=== PATIENT | female | born 1975 | race Caucasian/White ===

== ENCOUNTER → 2018-04-23 11:25 | Outpatient (CLI) | payer SELFPAY ==
[2018-04-23 13:14] LABS: Estradiol 23.5 pg/mL
[2018-04-23 13:34] LABS: Progesterone Level 0.16 ng/mL (See Comment)
[2018-04-24 10:33] LABS: Thyroid Peroxidase AB 9 IU/mL (0-34)
== END ==
PROVIDERS: Visit Provider Obstetrics & Gynecology
DX: N92.6 Irregular menstruation, unspecified (principal)
CPT/HCPCS: 36415; 82670; 84144; 84403; 86376

== ENCOUNTER → 2018-05-01 14:45 | Outpatient (CLI) | payer SELFPAY ==
[2018-05-06 15:59] LABS: HPV Reflexed? NOT INDICATED
== END ==
PROVIDERS: Referring Provider Obstetrics & Gynecology; Visit Provider Obstetrics & Gynecology
DX: Z12.4 Encounter for screening for malignant neoplasm of cervix (principal)
CPT/HCPCS: 88175; G0145

== ENCOUNTER 2018-06-30 11:56 | Day surgery (SDC) | payer SELFPAY, OTHER ==
[2018-06-26 11:25] LABS: Hematocrit 40.9 % (37-47); Hemoglobin 13.3 g/dl (12.0-15.0); Mean Corp Hgb Conc 32.5 g/gl (32-36); Mean Corpuscular Hgb 30.4 pg (27.0-32.0); Mean Corpuscular Volume 93.4 fL (81-99); Mean Platelet Vol. 9.5 fl (6.2-12.0); Platelet Count 247 K/mm3 (150-450); RBC Distribution Width CV 13.5 % (11.6-14.6); RBC Distribution Width SD 45.9 fl (35.1-43.9); Red Blood Count 4.38 M/mm3 (4.2-5.4); White Blood Count 6.5 K/mm3 (4.4-11.0)
[2018-06-26 11:28] LABS: Scan Indicated on CBC? Y/N NO
[2018-06-26 11:41] LABS: International Normalized Ratio 1.2; Partial Thromboplast Time 30.4 Seconds (24.1-36.2); Prothrombin Time (Protime)PT. 14.9 SECONDS (11.7-14.9)
--- NOTE | 2018-06-29 17:53 | PCM.HP.OB ---
- Problem List (1) Irregular menstrual bleeding Status: Acute (2) Endometrial thickening on ultrasound Status: Acute History Date of Admission: 06/30/18 History of this : This is a 42 year-old, G [], P [], at weeks gestational age. Allergies No Known Allergies Allergy (Verified 06/23/18 08:15) Home Medications: Home Medications Natural Supplement 8 oz PO DAILY 06/23/18 Smoking Status: Never smoker History Past Pregnancies: Past Pregnancies Delivery Date Name GA/Weeks Outcome Route Weight Gender Labor Length Anesthesia Delivery Location Provider FOB Review of Systems Constitutional: Denies: Chills, Fever, Weight Change HEENT: Denies: Difficulty Hearing, Difficulty Swallowing, Nasal bleeding, Nasal Congestion, Sore Throat Cardiovascular: Denies: Chest Pain, Palpitations Respiratory: Denies: Shortness of Breath, Wheezing Gastrointestinal: Denies: Constipation, Diarrhea, Nausea, Vomiting Genitourinary: Denies: Dysuria, Frequency, Hematuria, Incontinence, Urgency Musculoskeletal: Denies: Joint Pain, Muscle pain Skin: Denies: Lesions, Skin Changes Neurological: Denies: Focal weakness, Numbness Psychiatric: Denies: Anxiety, Depression Endocrine: Denies: Heat/ Cold Intolerance Hematologic/ Lymphatic: Denies: Easy Bleeding Physical Exam General: Alert, Oriented x3, No apparent distress HEENT: Atraumatic, Normocephalic. Negative for: Thyromegaly, Lymphadenopathy Cardiovascular: Regular rate, Regular Rhythm Lungs: Clear to auscultation Abdomen: Bowel Sounds Present, Gravid Neurological: Deep Tendon Reflexes 2+/4 and Symmetrical, Neuro grossly intact VACUUM CLEANER OPERATOR: Normal external genitalia. Negative for: Vulvar lesions Assessment/Plan All Active Problems Irregular menstrual bleeding (Acute) Endometrial thickening on ultrasound (Acute) This is a 42 year-old, irregular menses and notation of thickened endometrium on ultrasound. Recommend D and C, hysteroscopy. The preop preparation, the intraop procedures and the postop recovery reviewed. The risks of bleeding, infection and other organ damage including bladder, bowel and uterine perforation reviewed, accepted and consented.
--- NOTE | 2018-06-29 17:57 | HP.PCM_ITS ---
- Problem List (1) Irregular menstrual bleeding Status: Acute (2) Endometrial thickening on ultrasound Status: Acute History Date of Admission: 06/30/18 History of this : This is a 42 year-old, G [], P [], at weeks gestational age. Allergies No Known Allergies Allergy (Verified 06/23/18 08:15) Home Medications: Home Medications Natural Supplement 8 oz PO DAILY 06/23/18 Smoking Status: Never smoker History Past Pregnancies: Past Pregnancies Delivery Date Name GA/Weeks Outcome Route Weight Gender Labor Length Anesthesia Delivery Location Provider FOB Review of Systems Constitutional: Denies: Chills, Fever, Weight Change HEENT: Denies: Difficulty Hearing, Difficulty Swallowing, Nasal bleeding, Nasal Congestion, Sore Throat Cardiovascular: Denies: Chest Pain, Palpitations Respiratory: Denies: Shortness of Breath, Wheezing Gastrointestinal: Denies: Constipation, Diarrhea, Nausea, Vomiting Genitourinary: Denies: Dysuria, Frequency, Hematuria, Incontinence, Urgency Musculoskeletal: Denies: Joint Pain, Muscle pain Skin: Denies: Lesions, Skin Changes Neurological: Denies: Focal weakness, Numbness Psychiatric: Denies: Anxiety, Depression Endocrine: Denies: Heat/ Cold Intolerance Hematologic/ Lymphatic: Denies: Easy Bleeding Physical Exam General: Alert, Oriented x3, No apparent distress HEENT: Atraumatic, Normocephalic. Negative for: Thyromegaly, Lymphadenopathy Cardiovascular: Regular rate, Regular Rhythm Lungs: Clear to auscultation Abdomen: Bowel Sounds Present, Gravid Neurological: Deep Tendon Reflexes 2+/4 and Symmetrical, Neuro grossly intact ASSET PROTECTION PROFESSIONAL: Normal external genitalia. Negative for: Vulvar lesions Assessment/Plan All Active Problems Irregular menstrual bleeding (Acute) Endometrial thickening on ultrasound (Acute) This is a 42 year-old, irregular menses and notation of thickened endometrium on ultrasound. Recommend D and C, hysteroscopy. The preop preparation, the intraop procedures and the postop recovery reviewed. The risks of bleeding, infection and other organ damage including bladder, bowel and uterine perforation reviewed, accepted and consented.
[2018-06-30 12:29] LABS: Internal QC Validated? YES +Cl - CLEAR BKGD; Pregnancy, Urine Negative Negative
[2018-06-30 12:40] VITALS: BP 130/84; PULSE 64; RESP 16; TEMP 36.7; O2SAT 97; BMI 32.2
--- NOTE | 2018-06-30 13:50 | EMB_PTH ---
PATIENT: ROSARIO SAM LOC: [facility] – [place] U#:[id number] AGE/SX: 42/F ROOM: RE06/30/[address]: Dr. Soledad Bradford MD : 1975 BED: DIS: 06/30/2018 SPEC #: [id number] RECD: 07/01/18 06:58 STATUS: JOSE ENRIQUE TAVO #: [id number] BLOSSOM: 06/30/18 13:[address]: Soledad Bradford DEPT: SURGICAL PATHOLOGY RECD BY: Darshan Monte ENTERED: 07/01/18 12:18 SP TYPE: ENDOM BX/C NANCI DR: No Primary Care Phys Tissues: Endometrium, NOS Procedures: Surgery Specimen Level IV HEADER Case has been reviewed in consultation with Dr. Francois who concurs with the above diagnosis. IDC:SJOPERATION: Hysteroscopy, dilation and curettage PRE-OP DIAGNOSIS: Irregular menses and thickened endometrium TISSUE SUBMITTED: Endometrial curettings MICROSCOPIC DIAGNOSIS Endometrium, curettings: Transitional endometrium. Fragment of benign polyp with cystic change. AM:sandra 07/02/18 COMMENT Case has been reviewed in consultation with Dr. Francois who concurs with the above diagnosis. IDC:ORAL MICROSCOPIC DESCRIPTION Slides are reviewed. GROSS DESCRIPTION Received in fixative is one container labeled with the patient's name and designated endometrial curettings. The specimen consists of multiple fragments of hemorrhagic soft tissue that in aggregate measure 5 x 3 x 0.3 cm. The specimen is totally submitted in two cassettes. / ORAL:sandra 07/01/18 TC:5 CPT: 91531
--- NOTE | 2018-06-30 13:59 | PCM.OPRPT ---
Problem List (1) Irregular menstrual bleeding Status: Acute (2) Endometrial thickening on ultrasound Status: Acute Report of Operation Date of Procedure: 06/30/18 Pre-Operative Diagnosis: Irregular menses and thickened endometrium Post-Operative Diagnosis: Same Surgery/Procedure Performed:: Diagnostic hysteroscopy, D&C Description of Surgical Findings:: The uterus was noted to be in an anterior position on pelvic examination. She had uterine sounded to approximately 9-1/2-10 cm. Bilateral adnexa were noted to be benign on pelvic examination. Cervix was easily dilated to accommodate a 5 mm hysteroscope Type of Anesthesia:: Local MAC Anesthesiologist: Jose Manuel Kang Special Medications: Cefotetan 2 g IV preoperatively and 10 cc of 1% lidocaine directly to the cervix Specimen's removed: Endometrium Drains: None Estimated Blood Loss (mL): Minimal Fluids Replaced: Lactated Ringer Description of Procedure: Patient presented to the operating suite and n.p.o. status. She was placed on the operating room table and underwent a MAC anesthetic after appropriate monitors. Was a MAC anesthetic was noted to be adequate she was placed in the dorsal lithotomy position. The Jayson stirrups. She was prepped and draped in normal sterile fashion. Timeout occurred. Patient had a weighted speculum placed to the vaginal vault region and the anterior lip of the cervix was grasped elevated with a single-tooth tenaculum. Uterus was sounded to approximately 9-1/2-10 cm in an anterior position. The cervix was then injected with 1% lidocaine to the 4 quadrants of the cervix and patient tolerated well. Cervical os was easily dilated to accommodate a 5 mm hysteroscope. A millimeter hysteroscope was placed into the endometrial cavity and thickened endometrium throughout the end of nasal cavity have been noted. The hysteroscope was replaced by sharp curettage and flexion of the tissue. The tissue was then sent away for pathologic evaluation. Polyp forceps were used to remove additional tissue. Hysteroscope placed back into the initial cavity revealed removal of all tissue. Once the hysteroscope was removed along with a single-tooth tenaculum hemostasis was noted. Sponge and instrument counts were correct x2. The patient was awakened in stable condition be discharged to the home setting later today. Grafts/Implants Used: None - Complications None - Admit VTE Documentation VTE Present on Admission: No VTE Mechan Device Prophylaxis: SCD's VTE Pharm Prophylaxis ordered?: No Reason prophylaxis not ordered:: Procedure Not Indicated
--- NOTE | 2018-06-30 14:04 | DCINST_ITS ---
Discharge Diet: No Restrictions Discharge Activity: Return to Normal Activity, May Shower, May Take a Tub Bath - in 2 weeks. Return to work on:: 07/02/18 May shower in (days): 0 - TODAY May resume sexual activity in: 3 weeks Weight Bearing Status: Full weight bearing Lifting Restrictions: none Call your doctor if your incision/area has: Sudden Increased Bleeding Call your doctor if you observe: Fever of 101 or Higher, Inability to urinate, Inability to have a bowel movement, Using more than one pad per hour Cleanse incision/area with: Soap & Water Additional Instructions: motrin and ibuprofen for pain Allergies/Adverse Reactions: Allergies No Known Allergies Allergy (Verified 06/23/18 08:15) Medications to take at Discharge Natural Supplement 8 oz PO DAILY 06/23/18 Primary Care Physician: Care Physician,No Primary [Primary Care Provider] - Test Results: Test results from this visit will be discussed in further detail at your follow- up appointment, if applicable. Please Follow Up With: Soledad Bradford MD When: 1-2 weeks postop
[2018-06-30 14:07] VITALS: BP 119/76; BP 130/84; PULSE 72; RESP 16; TEMP 35.9; O2SAT 96
[2018-06-30 14:10] VITALS: BP 107/77; BP 130/84; PULSE 80; RESP 16; O2SAT 96
[2018-06-30 14:15] VITALS: BP 116/77; BP 130/84; PULSE 73; RESP 16; O2SAT 95
[2018-06-30 14:20] VITALS: BP 118/73; BP 130/84; PULSE 71; RESP 16; TEMP 36.1; O2SAT 94
[2018-06-30 14:37] VITALS: BP 130/84
== END 2018-06-30 14:47 | disposition home or self-care (01) ==
LOC: SDC 11:57 → AC 11:57
PROVIDERS: Anesthesiology; Referring Provider Obstetrics & Gynecology; Visit Provider Obstetrics & Gynecology
PROC: 0UDB8ZZ Extraction of Endometrium, Via Natural or Artificial Opening Endoscopic (ICD-10-PCS; CPT 58558; principal; 2018-06-30 13:40)
DX: N92.6 Irregular menstruation, unspecified (principal); N85.8 Other specified noninflammatory disorders of uterus
CPT/HCPCS: 00952; 58558; 36415; 81025; 85027; 85610; 85730; 86850; 86900; 88305; J7120

== ENCOUNTER → 2018-07-14 10:26 | Outpatient (CLI) | payer SELFPAY ==
[2018-06-30 12:40] VITALS: BMI 32.2
--- NOTE | 2018-07-14 10:31 | BI_ITS ---
MAMMOGRAPHY - BILATERAL SCREENING REASON FOR EXAM: Female, 42 years old. Routine annual screening examination. PERTINENT HISTORY: Grandmother with breast cancer. TECHNIQUE: Digital bilateral breast gale (3D mammographic acquisition) in the CC and MLO projections. 2-D mediolateral oblique (MLO) and craniocaudad (CC) views of both breasts were obtained. CAD: Full Field Digital Mammography with Computer Added Detection was performed. COMPARISON: None. Baseline examination. FINDINGS: Breast Composition: There are scattered areas of fibroglandular density. There are no dominant masses or suspicious calcifications. No other significant abnormalities are identified. BI/SCREENING MAMM (CAD), BILAT IMPRESSION: Negative screening mammogram. Yearly followup mammogram recommended. (A) ASSESSMENT CATEGORY: BIRADS Category 1: Negative. A letter regarding these results will be sent to the patient by the facility within 30 days. Approximately 10% of breast cancers are not detected by mammography. A normal mammogram should not delay biopsy of a clinically suspicious abnormality. [id number] Electronically Signed: Chente Smith MD at 14:49 EST , Service support ,
== END ==
PROVIDERS: Referring Provider Obstetrics & Gynecology; Visit Provider Obstetrics & Gynecology
DX: Z12.31 Encounter for screening mammogram for malignant neoplasm of breast (principal)
CPT/HCPCS: 77063; 77067

== ENCOUNTER → 2018-07-22 11:07 | Outpatient (CLI) | payer SELFPAY ==
[2018-06-30 12:40] VITALS: BMI 32.2
[2018-07-22 14:11] LABS: Estradiol 183.3 pg/mL; Progesterone Level 7.61 ng/mL (See Comment)
== END ==
PROVIDERS: Visit Provider Obstetrics & Gynecology
DX: N92.0 Excessive and frequent menstruation with regular cycle (principal)
CPT/HCPCS: 36415; 82670; 84144

== ENCOUNTER → 2019-02-08 09:33 | Outpatient (CLI) | payer OTHER, SELFPAY ==
[2019-02-08 11:16] LABS: Estradiol 37.3 pg/mL; Follicle Stimulating Hormone 7.2 mIU/mL; Free T3 2.4 pg/mL (2.18-3.98); Prolactin 7.6 ng/mL; T4 Free Direct 0.81 ng/dL (0.76-1.46); Thyroid Stim Hormone (TSH) 1.11 uIU/mL (0.358-3.74)
[2019-02-09 04:06] LABS: DHEA Sulfate 77.6 ug/dL (57.3-279.2)
[2019-02-10 09:57] LABS: Sex Hormone-binding Globulin 32.7 nmol/L (24.6-122.0)
== END ==
PROVIDERS: Visit Provider Obstetrics & Gynecology
DX: N92.1 Excessive and frequent menstruation with irregular cycle (principal)
CPT/HCPCS: 36415; 82306; 82533; 82627; 82670; 83001; 84146; 84270; 84403; 84439; 84443; 84481; 82626

== ENCOUNTER → 2019-02-19 09:58 | Outpatient (CLI) | payer OTHER, SELFPAY ==
[2019-02-19 11:16] LABS: Glucose 75GTT - Fasting 92 mg/dL (70-99)
[2019-02-19 12:28] LABS: Glucose 75GTT - 30 minutes 116 mg/dL (100-160)
[2019-02-19 12:40] LABS: Insulin 75GTT - 30 MIN 81.8 mU/L (Not Estab.)
[2019-02-19 12:41] LABS: Insulin 75GTT - 60 min 110.2 mU/L (Not Estab)
[2019-02-19 12:43] LABS: Glucose 75GTT - 60 minutes 154 mg/dL (100-160)
[2019-02-19 13:57] LABS: Glucose 75GTT - 120 minutes 114 mg/dL (70-140)
[2019-02-19 14:08] LABS: Insulin 75GTT - 120 min 132.7 mU/L (Not Estab.)
[2019-02-19 15:50] LABS: Insulin 75GTT - Fasting 9.4 mU/L (2.6-37.6)
== END ==
PROVIDERS: Referring Provider Obstetrics & Gynecology; Visit Provider Obstetrics & Gynecology
DX: N93.8 Other specified abnormal uterine and vaginal bleeding (principal)
CPT/HCPCS: 36415; 82951; 82952; 83525

== ENCOUNTER → 2019-09-23 11:31 | Outpatient (CLI) | payer OTHER, SELFPAY ==
[2019-09-20 12:50] VITALS: BMI 32.2
--- NOTE | 2019-09-23 11:33 | US_ITS ---
STUDY: ULTRASOUND OF THE FEMALE PELVIS - COMPLETE REASON FOR EXAM: Female, 44 years old. ABNORMAL BLEEDING LMP: September 11, 2019. TECHNIQUE: Transabdominal and Transvaginal TECHNICAL QUALITY: Adequate. COMPARISON: None. FINDINGS: The uterus is retroflexed and is in a midline position. The uterus measures 9.5 cm x 6.7 cm x 5.6 cm. There is a Nabothian cyst of the cervix. The endometrium measures 15 mm in thickness, and is hyperechoic. There is no demonstrated endometrial mass. There is no demonstrated myometrial mass. I.U.D. - The patient does not have an I.U.D. The right ovary is visualized. The right ovary measures 2.8 cm x 2.2 cm x 1.8 cm. There is no right ovarian cyst or ovarian mass. There is no visualized right adnexal mass or complex lesion. There is normal arterial and normal venous vascularity. The left ovary is visualized. The left ovary measures 3.8 cm x 2.9 cm x 2.3 cm. There is a 1.8 cm x 1.2 cm x 1.3 cm left ovarian follicle. There is no visualized left adnexal mass or complex lesion. There is normal arterial and normal venous vascularity. There is minimal fluid in the cul-de-sac. The pre void volume of the bladder was 840 ml. Polycystic ovary disease: No. US/Transvaginal Non- IMPRESSION: Mildly thickened endometrium. Small follicle in the left ovary. Electronically Signed: Chente Smith, at 13:24 EDT , Service support ,
--- NOTE | 2019-09-23 11:33 | US_ITS ---
STUDY: ULTRASOUND OF THE FEMALE PELVIS - COMPLETE REASON FOR EXAM: Female, 44 years old. ABNORMAL BLEEDING LMP: September 11, 2019. TECHNIQUE: Transabdominal and Transvaginal TECHNICAL QUALITY: Adequate. COMPARISON: None. FINDINGS: The uterus is retroflexed and is in a midline position. The uterus measures 9.5 cm x 6.7 cm x 5.6 cm. There is a Nabothian cyst of the cervix. The endometrium measures 15 mm in thickness, and is hyperechoic. There is no demonstrated endometrial mass. There is no demonstrated myometrial mass. I.U.D. - The patient does not have an I.U.D. The right ovary is visualized. The right ovary measures 2.8 cm x 2.2 cm x 1.8 cm. There is no right ovarian cyst or ovarian mass. There is no visualized right adnexal mass or complex lesion. There is normal arterial and normal venous vascularity. The left ovary is visualized. The left ovary measures 3.8 cm x 2.9 cm x 2.3 cm. There is a 1.8 cm x 1.2 cm x 1.3 cm left ovarian follicle. There is no visualized left adnexal mass or complex lesion. There is normal arterial and normal venous vascularity. There is minimal fluid in the cul-de-sac. The pre void volume of the bladder was 840 ml. Polycystic ovary disease: No. US/Pelvic (Non ) IMPRESSION: Mildly thickened endometrium. Small follicle in the left ovary. Electronically Signed: Chente Smith, at 13:24 EDT , Service support ,
[2019-09-23 13:46] LABS: Absolute Lymphocyte Count 1.91 X10^3/uL (0.83-4.51); Absolute Neutrophil Count 4.3 X10^3/uL (2.0-7.7); Basophil# 0.03 X10^3/uL; Basophil% 0.4 % (0-1); Eosinophil# 0.08 X10^3/uL; Eosinophils% 1.2 % (0-5); Hematocrit 28.5 % (37-47); Hemoglobin 8.6 g/dL (12.0-15.0); Lymphocyte # 1.91 X10^3/ul (4.0); Lymphocyte % 28.2 % (19-41); Mean Corp Hgb Conc 30.2 g/dL (32-36); Mean Corpuscular Hgb 26.2 pg (27.0-32.0); Mean Corpuscular Volume 86.9 fL (81-99); Monocyte# 0.38 X10^3/uL; Monocyte% 5.6 % (0-10); NRBC Flagged by Analyzer 0 % (0-5); Neutrophil # 4.32 X10^3/uL (2.7-7.7); Neutrophil % 63.7 % (47-70); Platelet Count 383 K/mm3 (150-450); RBC Distribution Width CV 14.7 % (11.6-14.6); Red Blood Count 3.28 M/mm3 (4.2-5.4); White Blood Count 6.8 K/mm3 (4.4-11.0)
== END ==
PROVIDERS: Obstetrics & Gynecology; PCP Internal Medicine; Referring Provider Nurse Practitioner Women's Health; Visit Provider Nurse Practitioner Women's Health
DX: N92.1 Excessive and frequent menstruation with irregular cycle (principal)
CPT/HCPCS: 36415; 76830; 76856; 85025

== ENCOUNTER → 2019-09-29 13:19 | Outpatient (CLI) | payer OTHER, SELFPAY ==
[2019-09-20 12:50] VITALS: BMI 32.2
[2019-09-29] MEDS: 0.9% NaCl IVPB Med Flush (250 mL) 15 ML IV (13:30)
[2019-09-29 13:39] VITALS: BP 128/77; PULSE 81; RESP 16; TEMP 36.3; O2SAT 100; BMI 31.5
[2019-09-29 15:25] VITALS: BP 126/70; PULSE 73; RESP 16; O2SAT 100
[2019-09-29 15:37] VITALS: BP 126/70; PULSE 73; RESP 16; O2SAT 100
== END ==
PROVIDERS: PCP Internal Medicine; Referring Provider Obstetrics & Gynecology; Visit Provider Obstetrics & Gynecology
DX: D64.9 Anemia, unspecified (principal)
CPT/HCPCS: 96365; 96366; J1756; J7050; A4216

== ENCOUNTER → 2019-10-06 08:17 | Outpatient (CLI) | payer OTHER, SELFPAY ==
[2019-09-20 12:50] VITALS: BMI 32.2
[2019-09-29 13:39] VITALS: BMI 31.5
[2019-10-06] MEDS: 0.9% NaCl IVPB Med Flush (250 mL) 15 ML IV (08:40)
[2019-10-06] MEDS: 0.9% NaCl Peripheral Flush Adult/Peds IV (08:40)
[2019-10-06 08:41] VITALS: BP 134/80; PULSE 82; RESP 16; TEMP 36.4; O2SAT 98; BMI 31.5
== END ==
PROVIDERS: PCP Internal Medicine; Referring Provider Obstetrics & Gynecology; Visit Provider Obstetrics & Gynecology
DX: D64.9 Anemia, unspecified (principal)
CPT/HCPCS: 96365; 96366; J1756; J7050; A4216; J2405

== ENCOUNTER 2019-10-06 10:34 | Day surgery (SDC) | payer OTHER, SELFPAY ==
[2019-08-26 15:51] VITALS: BMI 32.2
[2019-10-06] VITALS (11 sets, daily range): BP systolic 95–146; BP diastolic 54–83; PULSE 53–92; RESP 14–20; TEMP 36.4–37.3; O2SAT 96–100; BMI 31.5; BMI 31.8
--- NOTE | 2019-10-06 | HYST_PTH ---
PATIENT: ROSARIO SAM LOC: [facility] – [place] U#:[id number] AGE/SX: 44/F ROOM: RE10/06/[address]: Dr. Lauren Evans MD : 1975 BED: DIS: 10/07/2019 SPEC #: [id number] RECD: 10/06/19 14:43 STATUS: JOSE ENRIQUE TAVO #: [id number] BLOSSOM: 10/06/19 00:[address]: Lauren Evans DEPT: SURGICAL PATHOLOGY RECD BY: Wes Rivera ENTERED: 10/07/19 10:27 SP TYPE: HYSTERECT OTHR DR: Dr. Amy Alberto MD Tissues: Uterus, NOS Procedures: Surgery Specimen Level V HEADER OPERATION: ERAS, vaginal hysterectomy, bilateral salpingectomy PRE-OP DIAGNOSIS: Menorrhagia with irregular cycle N92.1 TISSUE SUBMITTED: Uterus, left fallopian tube MICROSCOPIC DIAGNOSIS Uterus, hysterectomy: Cervix - nabothian cysts and mild chronic inflammation. Endometrium - late secretory endometrium. Myometrium - focal superficial adenomyosis. Left fallopian tube - no pathologic change. AM:sandra 10/08/19 MICROSCOPIC DESCRIPTION Slides are reviewed. GROSS DESCRIPTION Received in fixative is one container labeled with the patient's name and designated uterus, left fallopian tube. The specimen consists of a hysterectomy specimen consisting of uterus with cervix and detached fallopian tube identified as left fallopian tube. The uterus with cervix weighs 170 gm and measures 10.5 x 7 x 5 cm. The serosal surface is sanchez, glistening. The ectocervical mucosa is unremarkable. The external os is oval in contour. The endocervical canal measures 3.5 cm in length and the endocervical mucosa is sanchez, glistening and unremarkable. The triangular endometrial cavity measures 5 cm in length and up to 4 cm in width. The endometrium is sanchez, glistening without any mass lesion and measures 0.1 cm in thickness. Sections of the uterine wall do not reveal any mass lesion and measures up to 3 cm in thickness. The left fallopian tube measures 4 cm in length and 0.5 cm in width. The fimbrial end is identified. Sections reveal unremarkable cut surfaces. Molding And Trim Installer sections are submitted in seven cassettes as follows: 1 - anterior cervix, 2 - posterior cervix, 3 & 4 - anterior uterine wall, 5 & 6 - posterior uterine wall, 7 - left fallopian tube. / ORAL:sandra 10/07/19 TC:5 CPT: 69792
[2019-10-06 11:03] LABS: Internal QC Validated? YES +Cl - CLEAR BKGD; Pregnancy, Urine Negative Negative
[2019-10-06 11:14] LABS: Hematocrit 32.3 % (37-47); Hemoglobin 9.8 g/dL (12.0-15.0); Mean Corp Hgb Conc 30.3 g/dL (32-36); Mean Corpuscular Hgb 26.1 pg (27.0-32.0); Mean Corpuscular Volume 86.1 fL (81-99); Platelet Count 390 K/mm3 (150-450); RBC Distribution Width CV 16.9 % (11.6-14.6); RBC Distribution Width SD 51.4 fl (35.1-43.9); Red Blood Count 3.75 M/mm3 (4.2-5.4); White Blood Count 5.8 K/mm3 (4.4-11.0)
[2019-10-06] MEDS: Acetaminophen 500 MG Tablet 1000 MG PO ×3 (11:24→23:53)
[2019-10-06] MEDS: Gabapentin 600 MG Tablet PO (11:25)
[2019-10-06] MEDS: Celecoxib 200 MG Capsule 400 MG PO (11:26)
[2019-10-06] MEDS: Phenazopyridine 95 MG Tablet 190 MG PO (11:26)
[2019-10-06 11:27] LABS: International Normalized Ratio 1.2; Magnesium 2.2 mg/dL (1.6-2.6); Partial Thromboplast Time 32.4 Seconds (24.1-36.2); Prothrombin Time (Protime)PT. 14.8 SECONDS (11.7-14.9)
[2019-10-06] MEDS: Scopolamine 1mg/72hr Patch 1 PATCH TRANSDERM. (11:28)
[2019-10-06] MEDS: Lactated Ringers 1,000 ML 40 ML IV ×2 (11:31→13:30)
[2019-10-06] MEDS: dexAMETHasone 10 MG/ML Vial 8 MG IV (11:31)
[2019-10-06] MEDS: Enoxaparin 40 MG/0.4 ML Syringe SC (11:33)
[2019-10-06 11:51] LABS: Bedside Glucose 89 mg/dL (70-110)
[2019-10-06] MEDS: Magnesium Sulfate 4gm/100mL 4 GM/100 ML IV.SOLN. IV (12:12)
--- NOTE | 2019-10-06 12:16 | PCM.HPOB.BLA ---
- Problem List (1) Abnormal laboratory test Status: Acute Comment: low DHEA (2) Anemia Status: Acute (3) Menorrhagia with irregular cycle Status: Acute Comment: plan TVH BS (4) Vitamin D deficiency Status: Acute Comment: 1,000 U daily History and Physical Date of Admission: 10/06/19 Intake Vital Signs 08/26/19 BMI 32.2 08/26/19 Height 5 ft 10 in 08/26/19 Weight: 223 lb 08/26/19 BMI 32.0 08/26/19 BP 112/88 H Intake Visit Reasons: SURGERY CONSULT Chief Complaint: surgical consult, possible hyst Online Banking Specialist Required: No Is patient in pain?: No Allergies No Known Allergies Allergy (Verified 08/26/19 15:51) Medications Natural Supplement 8 oz PO DAILY 06/23/18 [History Confirmed 08/26/19] bupropion HCl 150 mg 24 hr tablet, extended release 150 mg PO QAM 08/17/19 [History Confirmed 08/26/19] medroxyprogesterone 10 mg tablet 10 mg PO .COMPLEX #90 tab 08/26/19 [Rx Confirmed 08/26/19] Is last menstrual period known: No Post menopausal: No Patient : No : No PFSH Medical History Depression (Acute) Surgical History H/O dilation and curettage (Acute) Family History Mother Cancer carcinoma Social History (Updated 08/26/19 @ 16:[address] Lauren Evans MD) Smoking Status: Never smoker alcohol intake: never substance use type: does not use caffeine: Yes what type of physical activity do you participate in: none seatbelt use: always do you feel safe at home: Yes additional social history: [employer] [facility] SURGERY CONSULT : Details: ROSARIO SAM is a 43 year old who presents for abnormal uterine bleeding she has heavy bleeding and she struggles with this. she had a d and c inthe past by karthik, and she has used hormones in the past for it and didn't work clearly. she also had some side effects from it. she is wanting to proceed with surgical management. Female Reproductive History Cycle Length: 21-35 Bleeding Duration: 7 associated symptoms: heavy painful Questions: Metorrhagia: No, Sexually active: Yes, Dyspareunia: No, PCB: No Pregancy History 7 Elective abortions Hx Para 6 Spontaneous abortions Hx # Term Pregnancies Ectopic pregnancies Hx # Pregnancies Multiple births # of living children ROS Const Constitutional: Denies fatigue, fever(s), headache(s), increased appetite, poor appetite, weight gain or weight loss Cardio Card: Denies chest pain Resp Resp: Denies cough or dyspnea GI GI: Reports as per HPI; denies abdominal pain, constipation, nausea or vomiting : Reports as per HPI and urinary incontinence; denies difficulty urinating, painful urination, nipple discharge, urinary frequency, urinary hesitancy, urinary urgency, vaginal discharge, vaginal dryness, vaginal odor or vaginal itching Skin Skin/Breast: Denies change in hair, breast lump, breast pain, breast skin changes or nipple discharge Exam Const General: cooperative, healthy appearing, comfortable, no acute distress, well developed Nutritional Appearance: average body habitus Orientation: alert HENMT Head: normal to inspection, normocephalic Neck Neck: normal visual inspection, trachea midline Thyroid: thyroid normal Resp Effort & Inspection: normal respiratory effort Cardio Rate: regular rate Rhythm: regular rhythm Heart Sounds: S1 normal, S2 normal GI Inspection: normal to inspection, non-distended Palpation: soft, no hepatosplenomegaly Skin General: no rashes or lesions noted Assessment & Plan Problems 1. Menorrhagia with irregular cycle N92.1 plan TV BS After discussing the patient's diagnosis and treatment plan options, patient wishes to proceed with surgical management. I have discussed with the patient the risks, benefits, and alternatives of the procedure which include but are not limited to risks of anesthesia, bleeding, infection, possible damage to bowel, bladder, or surrounding vasculature which could lead to additional surgery to evaluate any complications. Patient agrees to procedure and wishes to proceed. ACOG/uptodate references given for additional information regarding procedure. Plan Problem list updated and treatment plans were reviewed with the patient and relevant educational handouts given. See problem list details for specific plan information. Medications Refilled: medroxyprogesterone (Provera) 10 mg PO tid until bleeding stops for 24 hr then bid; 90 tabs 2RF Coding Level of Care Code Off vis,est,level 4 Diagnoses Menorrhagia with irregular cycle N92.1
[2019-10-06] MEDS: Cefazolin 2 GM in 0.9% Normal Saline 100 ML IV (12:36)
--- NOTE | 2019-10-06 12:53 | PCM.OPRPT ---
Problem List (1) Abnormal laboratory test Status: Acute Comment: low DHEA (2) Anemia Status: Acute (3) Menorrhagia with irregular cycle Status: Acute Comment: plan TVH BS (4) Vitamin D deficiency Status: Acute Comment: 1,000 U daily Report of Operation Date of Procedure: 10/06/19 Pre-Operative Diagnosis: aub anemia Surgery/Procedure Performed:: tvh left salpingectomy Description of Surgical Findings:: nl bl tubes and ovaries but difficulty accessing full right tube. ditching machine engineer: Emelyn Chapa Type of Anesthesia:: General Special Medications: none Specimen's removed: uterus tubes Drains: santana Estimated Blood Loss (mL): 50 Fluids Replaced: crystalloid Description of Procedure: Patient was taken to the operating room and was placed under general anesthesia was prepped and draped in normal sterile fashion in the dorsal lithotomy position. Preoperative antibiotics and SCDs and Santana catheter was placed inside the bladder. Weighted speculum was placed in the vagina and the anterior and posterior lip of the cervix was grasped with 2 Shonna clamps and circumferentially injected with dilute vasopressin. A circumferential incision was made with a scalpel and the posterior cul-de-sac was entered into sharply and a longneck speculum was placed. The anterior cul-de-sac was also dissected down and entered into sharply and the uterosacral ligaments were clamped cut and suture ligated bilaterally followed by the cardinal ligaments which were Clamped cut and suture ligated bilaterally with 0 Monocryl. The uterus serially descended and progressive bites were taken bilaterally up to the level of the utero-ovarian ligament bilaterally which was clamped transected and double ligated with 0 Monocryl suture and 0 Vicryl free tie. Bilateral fallopian tubes and ovaries were well visualized and noted be within normal limits and the right tube was unable to be removed due to limited access but the left fallopian tube was transected across the base with a Sonia clamp and removed and sutured with 0 Vicryl suture. Excellent hemostasis was noted. Posterior peritoneum was reapproximated with 2-0 Vicryl and 2 modified Ybarra stitches were placed through the posterior vaginal cuff and bilateral uterosacral ligaments across the posterior cul-de-sac skimming along to provide apical support to the vagina. The vagina was closed with [id number] 0 Vicryl pop offs including the posterior and anterior peritoneum in the reapproximation. Excellent hemostasis was noted. All instruments removed from the vagina clear urine was noted at the end of the procedure and patient was awoken and taken recovery in stable condition. Grafts/Implants Used: none - Complications none - Admit VTE Documentation VTE Present on Admission: No VTE Mechan Device Prophylaxis: SCD's Multi Select Codes - Urinary/Genital Urinary/Genital CPT Codes: 36185 TVH+BS/O <250gr uterus
--- NOTE | 2019-10-06 12:57 | PCM.DC.VHY ---
Discharge Diet: No Restrictions Discharge Activity: Return to Normal Activity, May Not Drive, May Shower May resume sexual activity in: 6-8 weeks Call your doctor if your incision/area has: Continuous Slow Oozing, Sudden Increased Bleeding, Increased Pain/ Swelling, Increased Redness, Foul Smelling Discharge Call your doctor if you observe: Fever of 101 or Higher, Inability to urinate, Inability to have a bowel movement, Using more than one pad per hour Allergies/Adverse Reactions: Allergies No Known Allergies Allergy (Verified 10/06/19 11:12) Medications to take at Discharge bupropion HCl 150 mg 24 hr tablet, extended release 150 mg PO QAM 08/17/19 Cholecalciferol (Vitamin D3) [Vitamin D3] 10,000 units PO DAILY 09/29/19 Megestrol Acetate 40 mg PO BID 10/04/19 Naproxen [Naprosyn] 250 - 500 mg PO Q8H PRN PRN #30 tab 10/06/19 Oxycodone HCl/Acetaminophen [Percocet 5-325] 1 - 2 tablet PO Q6H PRN PRN 7 Days #15 tablet 10/06/19 The following prescriptions were given: Naproxen [Naprosyn] 250 - 500 mg PO Q8H PRN PRN #30 tab PRN Reason: MILD PAIN Transmission Status: Pending to [facility] Oxycodone HCl/Acetaminophen [Percocet 5-325] 1 - 2 tablet PO Q6H PRN PRN 7 Days #15 tablet PRN Reason: Pain Transmission Status: Sent to [facility] Primary Care Physician: Amy Alberto [Primary Care Provider] - Test Results: Test results from this visit will be discussed in further detail at your follow-up appointment, if applicable. Please Follow Up With: Lauren Evans MD - [phone]
[2019-10-06] MEDS: Vasopressin 20 UNITS/ML Vial (13:03)
[2019-10-06] MEDS: Ondansetron 4 MG/2 ML Vial IV (14:43)
[2019-10-06] MEDS: Lactated Ringers 1,000 ML 70 ML IV (15:48)
[2019-10-06] MEDS: Ketorolac 30 MG/ML Syringe IV (20:04)
[2019-10-06] MEDS: Docusate Sodium 100 MG Capsule PO (22:17)
[2019-10-07] MEDS: Ketorolac 30 MG/ML Syringe IV ×2 (02:03→07:48)
[2019-10-07 03:35] VITALS: BP 125/70; PULSE 95; RESP 16; TEMP 36.9; O2SAT 97
[2019-10-07] MEDS: Lactated Ringers 1,000 ML 70 ML IV (05:44)
[2019-10-07] MEDS: Acetaminophen 500 MG Tablet 1000 MG PO ×2 (05:50→11:45)
[2019-10-07 06:44] LABS: Hematocrit 32.2 % (37-47); Hemoglobin 9.6 g/dL (12.0-15.0); Mean Corp Hgb Conc 29.8 g/dL (32-36); Mean Corpuscular Hgb 26.1 pg (27.0-32.0); Mean Corpuscular Volume 87.5 fL (81-99); Mean Platelet Vol. 9.1 fl (6.2-12.0); Platelet Count 390 K/mm3 (150-450); RBC Distribution Width CV 17.3 % (11.6-14.6); RBC Distribution Width SD 54.2 fl (35.1-43.9); Red Blood Count 3.68 M/mm3 (4.2-5.4); White Blood Count 14.6 K/mm3 (4.4-11.0)
[2019-10-07 07:40] VITALS: BP 131/80; PULSE 74; RESP 18; TEMP 36.7; O2SAT 96
[2019-10-07] MEDS: 0.9% Saline Lock 10 ML Syringe IV (07:48)
[2019-10-07 07:55] VITALS: O2SAT 98
--- NOTE | 2019-10-07 09:38 | PN.OBGYN_ITS ---
Subjective: patient recovering well, denies CP, SOB, N, or V. patient is ambulating, voiding ,tolerating adequate po, and pain is controlled with oral medications. - Physical Exam Vitals/I&O's: Vital Signs Temp Pulse Resp BP Pulse Ox 98.1 F 74 18 131/80 H 98 10/07/19 07:40 10/07/19 07:40 10/07/19 07:40 10/07/19 07:40 10/07/19 07:55 Oxygen Flow Rate (L/min) 6 Oxygen Delivery Method Room Air Weight: 222 lb 7.143 oz Body Mass Index (BMI) 31.8 Intake and Output for Last 24 Hours 10/05/19 10/06/19 10/07/19 23:59 23:59 23:59 Intake Total 2000.33 / 2316.50 / 2316.50 Output Total 1465 / 1465 3500 / 3500 Balance 536.33 / 536.33 -1183.50 / -1183.50 Laboratory Results 10/06/19 10:50: Urine Test Negative 10/06/19 11:03: POC Glucose 89 10/06/19 11:04: WBC 5.8, RBC 3.75 L, Hgb 9.8 L, Hct 32.3 L, MCV 86.1, MCH 26.1 L , MCHC 30.3 L, RDW Std Deviation 51.4 H, RDW Coeff of Ruthie 16.9 H, Plt Count 390, MPV 9.0 10/06/19 11:04: PT 14.8, INR 1.2, APTT 32.4 10/06/19 11:04: Magnesium 2.2 10/06/19 11:04: Blood Type A POSITIVE, Antibody Screen NEGATIVE 10/07/19 06:10: WBC 14.6 H, RBC 3.68 L, Hgb 9.6 L, Hct 32.2 L, MCV 87.5, MCH 26.1 L, MCHC 29.8 L, RDW Std Deviation 54.2 H, RDW Coeff of Ruthie 17.3 H, Plt Count 390, MPV 9.1 Current Medications Acetaminophen (Tylenol) 1,000 mg PO Q6 JOAO Last Admin: 10/07/19 05:50 Dose: 1,000 mg Documented by: Docusate Sodium (Colace) 100 mg PO BID [facility] Last Admin: 10/06/19 22:17 Dose: 100 mg Documented by: Lactated Ringer's () 1,000 mls @ 70 mls/hr IV .[id number] [facility] Stop: 10/07/19 14:58 Last Infusion: 10/07/19 07:45 Dose: 70 mls/hr Documented by: Sodium Chloride () 250 mls @ 15 mls/hr IV .[id number] PRN PRN Reason: Saline Flush Sodium Chloride () 250 mls @ 15 mls/hr IV .[id number] PRN PRN Reason: Additional IVPB Infusion Ketorolac Tromethamine (Toradol (Bkc)) 30 mg IV Q6H [facility] Stop: 10/08/19 02:01 Last Admin: 10/07/19 07:48 Dose: 30 mg Documented by: Magnesium Oxide (Mag-Ox 400) 400 mg PO DAILY PRN PRN PRN Reason: Constipation Nutritional Formula (Lactose Free) (Ensure Enlive) 120 ml PO TIDCM [facility] Last Admin: 10/06/19 16:53 Dose: Not Given Documented by: Ondansetron HCl (Zofran Odt) 4 mg PO Q6H PRN PRN PRN Reason: NAUSEA Oxycodone HCl (Oxyir) 5 - 10 mg PO Q4H PRN PRN PRN Reason: Pain Score 4-10/10 Sodium Chloride () 10 - 40 ml IV UD PRN PRN Reason: SALINE FLUSH Last Admin: 10/07/19 07:48 Dose: 10 ml Documented by: Medical Necessity - Tobacco Use Smoking Status: Never smoker Tobacco Use: Non-smoker Assessment/Plan All Active Problems (Last Reviewed 08/26/19 @ 15:51 by Arabella Morales) Anemia (Acute) Vitamin D deficiency (Acute) Abnormal laboratory test (Acute) Menorrhagia with irregular cycle (Acute) patient is s/p TVH POD 1 1. routine ERAS protocol postop care- increase ambulation, encourage oral intake and oral control of pain. lovenox and scds for dvt prophylaxis, patient stable for discharge to home.
[2019-10-07] MEDS: Docusate Sodium 100 MG Capsule PO (09:44)
[2019-10-07 11:51] VITALS: BP 122/70; PULSE 83; RESP 18; TEMP 36.6; O2SAT 95
[2019-10-07 12:25] VITALS: BP 102/58; PULSE 66; RESP 18; TEMP 36.7; O2SAT 99
== END 2019-10-07 12:38 | disposition home or self-care (01) ==
LOC: SDC 10:36 → AC 10:36 → MS3 14:04
PROVIDERS: PCP Internal Medicine; Referring Provider Obstetrics & Gynecology; Visit Provider Obstetrics & Gynecology
PROC: (CPT 58260; principal; 2019-10-06 12:10)
DX: N92.1 Excessive and frequent menstruation with irregular cycle (principal); N88.8 Other specified noninflammatory disorders of cervix uteri; N80.0 Endometriosis of uterus; D64.9 Anemia, unspecified; E55.9 Vitamin D deficiency, unspecified; F32.9 Major depressive disorder, single episode, unspecified
CPT/HCPCS: 58262; 36415; 81025; 82962; 83735; 85027; 85610; 85730; 86850; 86900; 86901; 88307; 99251; J7120; A4216; G0463; J2405

== ENCOUNTER → 2019-12-16 13:43 | Outpatient (CLI) | payer OTHER, SELFPAY ==
[2019-10-18 15:21] VITALS: BMI 31.8
--- NOTE | 2019-12-16 13:43 | BI_ITS ---
MAMMOGRAPHY - BILATERAL SCREENING REASON FOR EXAM: Female, 44 years old. Routine annual screening examination. PERTINENT HISTORY: Grandmother with breast cancer. TECHNIQUE: Digital bilateral breast aryan (3D mammographic acquisition) in the CC and MLO projections. 2-D mediolateral oblique (MLO) and craniocaudad (CC) views of both breasts were obtained. CAD: Full Field Digital Mammography with Computer Added Detection was performed. COMPARISON: Comparison is made with prior examination dated July 14, 2018. FINDINGS: Breast Composition: The breasts are almost entirely fatty. There are no dominant masses or suspicious calcifications. No other significant abnormalities are identified. There has been no significant change since the prior study. BI/SCREEN MAMM (CAD) W/ARYAN BILAT IMPRESSION: Stable bilateral screening mammogram. Yearly follow-up mammogram recommended. (A) ASSESSMENT CATEGORY: BIRADS Category 1: Negative. A letter regarding these results will be sent to the patient by the facility within 30 days. Approximately 10% of breast cancers are not detected by mammography. A normal mammogram should not delay biopsy of a clinically suspicious abnormality. [id number] Electronically Signed: Chente Smith, at 8:20 EDT , Service support ,
== END ==
PROVIDERS: PCP Internal Medicine; Referring Provider Obstetrics & Gynecology; Visit Provider Obstetrics & Gynecology
DX: Z12.31 Encounter for screening mammogram for malignant neoplasm of breast (principal)
CPT/HCPCS: 77063; 77067

== ENCOUNTER → 2022-09-09 | Outpatient (CLI) | payer OTHER, SELFPAY ==
--- NOTE | 2022-09-09 11:43 | BI_ITS ---
MAMMOGRAPHY - BILATERAL SCREENING REASON FOR EXAM: Female, 47 years old. Routine annual screening examination. PERTINENT HISTORY: Grandmother with breast cancer. TECHNIQUE: Digital bilateral breast aryan (3D mammographic acquisition) in the CC and MLO projections. 2-D mediolateral oblique (MLO) and craniocaudad (CC) views of both breasts were obtained. CAD: Full Field Digital Mammography with Computer Added Detection was performed. COMPARISON: Comparison is made with prior study dated December 16, 2019 and July 14, 2018. FINDINGS: Breast Composition: There are scattered areas of fibroglandular density. There are no dominant masses or suspicious calcifications. No other significant abnormalities are identified. There has been no significant change since the prior study. BI/SCRN MAMM (CAD)W/ARYAN BILAT IMPRESSION: Stable bilateral screening mammogram. Yearly follow-up mammogram recommended. (A) ASSESSMENT CATEGORY: BIRADS Category 1: Negative. A letter regarding these results will be sent to the patient by the facility within 30 days. Approximately 10% of breast cancers are not detected by mammography. A normal mammogram should not delay biopsy of a clinically suspicious abnormality. [id number] Electronically Signed: Chente Smith MD at 14:07 EDT ,
== END | disposition home or self-care (01) ==
LOC: OPBI 11:39
PROVIDERS: PCP Internal Medicine; Referring Provider Obstetrics & Gynecology; Visit Provider Obstetrics & Gynecology
DX: Z12.31 Encounter for screening mammogram for malignant neoplasm of breast (principal)
CPT/HCPCS: 77063; 77067

== ENCOUNTER → 2024-06-23 | Outpatient (CLI) | payer OTHER, SELFPAY ==
--- NOTE | 2024-06-23 11:52 | BI_ITS ---
MAMMOGRAPHY - BILATERAL SCREENING REASON FOR EXAM: Female, 48 years old. Routine annual screening examination. PERTINENT HISTORY: Grandmother with breast cancer. TECHNIQUE: Digital bilateral breast aryan (3D mammographic acquisition) in the CC and MLO projections. 2-D mediolateral oblique (MLO) and craniocaudad (CC) views of both breasts were obtained. CAD: Full Field Digital Mammography with Computer Added Detection was performed. COMPARISON: Comparison is made with prior study September 09, 2022 and December 16, 2019. FINDINGS: Breast Composition: There are scattered areas of fibroglandular density. There are no dominant masses or suspicious calcifications. No other significant abnormalities are identified. There has been no significant change since the prior study. BI/SCRN MAMM (CAD)W/ARYAN BILAT IMPRESSION: Stable bilateral screening mammogram. Yearly follow-up mammogram recommended. (A) ASSESSMENT CATEGORY: BIRADS Category 1: Negative. A letter regarding these results will be sent to the patient by the facility within 30 days. Approximately 10% of breast cancers are not detected by mammography. A normal mammogram should not delay biopsy of a clinically suspicious abnormality. [id number] Electronically Signed: Chente Smith MD at 12:55 EST ,
== END | disposition home or self-care (01) ==
LOC: OPBI 11:51
PROVIDERS: PCP Internal Medicine; Referring Provider Obstetrics & Gynecology; Visit Provider Obstetrics & Gynecology
DX: Z12.31 Encounter for screening mammogram for malignant neoplasm of breast (principal)
CPT/HCPCS: 77063; 77067

== ENCOUNTER → 2024-10-27 | Outpatient (CLI) | payer OTHER, SELFPAY ==
[2024-10-27 12:23] LABS: Hematocrit 39.6 % (37-47); Hemoglobin 13.5 g/dL (12.0-15.0); Mean Corp Hgb Conc 34.1 g/dL (32-36); Mean Corpuscular Hgb 31.5 pg (27.0-32.0); Mean Corpuscular Volume 92.3 fL (81-99); Mean Platelet Vol. 9.7 fl (6.2-12.0); Platelet Count 274 K/mm3 (150-450); RBC Distribution Width CV 12.2 % (11.6-14.6); RBC Distribution Width SD 41.7 fl (35.1-43.9); Red Blood Count 4.29 M/mm3 (4.2-5.4); White Blood Count 5.4 K/mm3 (4.4-11.0)
[2024-10-27 12:56] LABS: Anion Gap 9 (5-15); BUN 19 mg/dL (4-19); BUN/Creat Ratio 27.1 RATIO (10-20); Carbon Dioxide 25.1 mmol/L (21.0-32.0); Chloride 102 mmol/L (98-108); Creatinine, Serum 0.69 mg/dL (0.70-1.20); EST Glomerular Filtration Rate 108 (>60); Glucose 96 mg/dL (70-99); Potassium 3.5 mmol/L (3.3-5.1); Sodium Level 136 mmol/L (133-145)
[2024-10-27 13:21] LABS: Hemoglobin A1c 5.5 % (<=5.6)
== END | disposition home or self-care (01) ==
LOC: MTLAB 09:47
PROVIDERS: Anesthesiology; PCP Internal Medicine; Referring Provider Urology; Visit Provider Urology
DX: Z01.818 Encounter for other preprocedural examination (principal); N81.4 Uterovaginal prolapse, unspecified
CPT/HCPCS: 36415; 80048; 83036; 85027

== ENCOUNTER 2024-11-04 09:56 | Observation (INO) | payer OTHER, SELFPAY ==
[2024-11-04] VITALS (15 sets, daily range): BP systolic 96–123; BP diastolic 55–82; PULSE 54–93; RESP 12–18; TEMP 2.4–36.4; O2SAT 94–98
[2024-11-04] MEDS: Lactated Ringers 1,000 ML 15 ML IV (06:44)
--- NOTE | 2024-11-04 06:49 | PCM.PRE.AN2 ---
ASA Classification* ASA Classification ASA Classification: 2 Assessment & Plan Anesthesia* Anesthesia Assessment Anesthesia Assessment: Discussed sedation and/or anesthesia options, risks, benefits, and alternatives with patient/parents/legal guardian/POA. Questions invited. The patient/parents/legal guardian/POA seems to understand and agrees to proceed with anesthesia plan. Reviewed the physical assessment, medical history, allergy history and patient home medications list prior to surgery/procedure/anesthetic and documented any changes. Performed airway and anesthesia risk assessments. Anesthesia Type Anesthesia Type: General Anesthesia Focused Assessment* Temperature: 97.2 F Pulse Rate: 61 Blood Pressure: 110/82 Respiratory Rate: 16 Pulse Ox: 97 Airway Assessment Mouth opens: >3 cm Mallampati Score: II Focused Labs Anesthesia Preop lab: CBC WBC 5.4 K/mm3 (4.4-11.0) 10/27/24 10:10/27/24 RBC 4.29 M/mm3 (4.2-5.4) 10/27/24 10:10/27/24 Hgb 13.5 g/dL (12.0-15.0) 10/27/24 10:14 10/27/24 Hct 39.6 % (37-47) 10/27/24 10:10/27/24 Plt Count 274 K/mm3 (150-450) 10/27/24 10:14 10/27/24 CHEMISTRY Potassium 3.5 mmol/L (3.3-5.1) 10/27/24 10:10/27/24 Sodium 136 mmol/L (133-145) 10/27/24 10:14 10/27/24 Magnesium 2.2 mg/dL (1.6-2.6) 10/06/19 11:04 10/06/19 BUN 19 mg/dL (4-19) 10/27/24 10:14 10/27/24 Creatinine 0.69 mg/dL (0.70-1.20) L 10/27/24 10:14 10/27/24 Glucose 96 mg/dL (70-99) 10/27/24 10:10/27/24 POC Glucose 89 mg/dL (70-110) 10/06/19 11:03 10/06/19 TSH 1.11 uIU/mL (0.358-3.74) 02/08/19 09:35 02/08/19 COAG PT 14.8 SECONDS (11.7-14.9) 10/06/19 11:04 10/06/19 Urine Test Negative Negative 10/06/19 10:50 10/06/19 Pre-Assessment Diagnosis/Proposed Procedure Planned Operative Procedure(s): Anterior and posterior repair, possible SSLF with dermis, Mid-urethral sling, Cysto Anesthesia History Anesthesia History - trust and estates attorney: Anesthesia History - trust and estates attorney Hx Hospitalization No 10/21/24 14:19 Any Problems With Anesthesia Yes: slow to wake up 10/21/24 14:19 Cholinesterase deficiency No 10/21/24 14:19 You/Your Family Experience No 10/21/24 14:19 fever (hyperthermia) with Relationship Recent Exposure to Contagious No 11/04/24 06:35 Disease Does patient have nerve No 10/21/24 14:19 stimulator Patient instructed to have device shut off --Does patient have Pacemaker No 11/04/24 06:37 or ICD? When Was Last Pacemaker Check QUESTION #4 FULL TEXT: You/Your Family Experience fever (hyperthermia) with Anesthesia Last Oral Intake Last Oral intake: Last Oral Intake NPO since 00:00 11/04/24 06:37 Meds taken in AM with sips of water? Meds patient instructed to take am of surgery PONV PONV - trust and estates attorney: PONV - trust and estates attorney Female Yes 10/21/24 14:19 HX of Motion Sickness Yes 10/21/24 14:19 HX of N/V After Surgery No 10/21/24 14:19 Non-Smoker Yes 10/21/24 14:19 Duration of Surgery greater Yes 10/21/24 14:19 than 60 minutes Number of Risk Factors 4 10/21/24 14:19 PONV Score Severe Risk 10/21/24 14:19 Height & Weight Height & Weight: Anesthesia: Height & Weight Height 5 ft 10 in 11/04/24 06:37 Weight: 95 kg 11/04/24 06:37 Body Mass Index (BMI) 30.0 11/04/24 06:37 Respiratory Assessment Respiratory Assessment - trust and estates attorney: Respiratory Tract Infection Hx - trust and estates attorney Hx Respiratory Tract Infection No 10/21/24 14:19 STOP Sleep Apnea STOP Sleep Apnea - trust and estates attorney: STOP Sleep Apnea - trust and estates attorney Hx Hypertension No 10/21/24 14:19 Hx Sleep Apnea No 10/21/24 14:19 CPAP BIPAP Do you snore loudly (louder No 10/21/24 14:19 than talking or can be heard Do you often feel tired/ No 10/21/24 14:19 fatigued/ sleepy during daytime? Has anyone observed you stop No 10/21/24 14:19 breathing during sleep? STOP Results Negative 10/21/24 14:19 QUESTION #5 FULL TEXT : Do you snore loudly (louder than talking or can be heard through closed doors)? 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 Specify any problems Hx of Preganancy in last 3 N/A 10/21/24 14:19 Months Nurse Filling Out Transfusion NBUCHER 10/21/24 14:19 & Questions: Date: 10/21/24 10/21/24 14:19 Time: 14:20 10/21/24 14:19 Patient unable to answer at this time (ie. confused, unrespo /Reproduction History /Reproductive History - trust and estates attorney: /Reproductive Hx- trust and estates attorney Hx Now No 10/21/24 14:19 Gestational Age (in weeks): EDC: Hx Hx Para Hx Section SAB No 10/21/24 14:19 Active Medications Active Medications: Current Medications Generic Name Dose Route Start Last Admin Trade Name Freq PRN Reason Stop Dose Admin Cefazolin Sodium 2 gm/ Sodium 110 mls @ 150 mls/hr 11/04/24 07:30 Chloride IV 11/04/24 08:13 INTRAOP ONE Lactated Ringer's 1,000 mls @ 15 mls/hr 11/04/24 06:15 11/04/24 06:44 IV 15 mls/hr .Q48H JOAO Administration PFSH Medical History Wears glasses Wears dentures Dietary restriction Leg cramps Diabetes Non-smoker Encounter for colorectal cancer screening using Cologuard test Hyperlipemia Depression Home Medications ?Medication ?Instructions ?Recorded ?Last Taken ?Type NK 03/25/22 Unknown History Allergy/AdvReac Type Severity Reaction Status Date / Time No Known Allergies Allergy Verified 10/21/24 14:18 Family History Mother Cancer carcinoma Surgical History H/O total vaginal hysterectomy H/O dilation and curettage Social History number of children: 6 Smoking Status: Never smoker alcohol intake: never substance use type: does not use caffeine: Yes what type of physical activity do you participate in: none seatbelt use: always do you feel safe at home: Yes additional social history: Jewel Interiano Review of Systems (Anesthesia) ROS Narrative System reviewed and no additional complaints, except as documented.
[2024-11-04 06:58] LABS: Bedside Glucose 98 mg/dL (74-106)
[2024-11-04] MEDS: Cefazolin 2 GM in 0.9% Normal Saline (100mL Bag) 100 ML IV (07:38)
[2024-11-04] MEDS: Lidocaine 1% /Epi 1:100 (20ml) 20 ML Vial (09:26)
[2024-11-04] MEDS: Estrogens,Conj. 1 Tube 1 DOSE (09:30)
--- NOTE | 2024-11-04 09:45 | PCM.POST.ANE ---
Anesthesia: Postop Eval I Current Vital Signs Temperature: 36.4 F Pulse Rate: 93 Blood Pressure: 122/81 Respiratory Rate: 12 Pulse Ox: 96 Oxygen Delivery Method: Room Air Assessment Airway patent: Yes Spontaneous unlabored respirations: Yes Mental status: Calm and Asleep nausea: No Vomiting: No Anesthesia Complication: No Fluid Hydration Crystalloid volume administer (ml): 1,000 Total IV fluid infused: 1,000 Progress Note Anesthesia document: Postop Eval 1 completed: Yes
--- NOTE | 2024-11-04 10:05 | POSTOPAN2_ITS ---
Anesthesia Postop Eval I Sum Postop Eval Completion status Anesthesia document: Postop Eval 1 completed: Yes Anesthesia Postop Eval I Summary Anesthesia Postop Eval I Summary: Anesthesia Postop Eval I: Assessment Summary Airway patent Yes 11/04/24 09:48 CALENDER WORKER [email or web address] Spontaneous unlabored Yes 11/04/24 09:48 CALENDER WORKER HELPER.JBOR respirations Mental status Calm,Asleep 11/04/24 09:48 CALENDER WORKER HELPER.JBOR nausea No 11/04/24 09:48 CALENDER WORKER HELPER.JBOR Vomiting No 11/04/24 09:48 CALENDER WORKER HELPER.JBOR Anesthesia Postop Eval I: Fluid Summary Crystalloid volume administer 1,000 11/04/24 09:48 CALENDER WORKER HELPER.JBOR (ml) Colloids volume administered ( ml) Blood Product volume administered (ml) Total IV fluid infused 1,000 11/04/24 09:48 CALENDER WORKER HELPER.JBOR Anesthesia Postop Eval I: Summary Notes Anesthesia Complication No 11/04/24 09:48 CALENDER WORKER HELPER.JBOR Anesthesia Complication Comment: Post-operative progress note Anesthesia: Postop Eval II Evaluation Mental status: Awake Pain Level: 0 nausea: No Vomiting: No
--- NOTE | 2024-11-04 10:05 | PCM.POSTANE2 ---
Anesthesia Postop Eval I Sum Postop Eval Completion status Anesthesia document: Postop Eval 1 completed: Yes Anesthesia Postop Eval I Summary Anesthesia Postop Eval I Summary: Anesthesia Postop Eval I: Assessment Summary Airway patent Yes 11/04/24 09:48 WIND ENERGY SYSTEMS INSTALLER.[email or web address] Spontaneous unlabored Yes 11/04/24 09:48 WIND ENERGY SYSTEMS INSTALLER.JBOR respirations Mental status Calm,Asleep 11/04/24 09:48 WIND ENERGY SYSTEMS INSTALLER.JBOR nausea No 11/04/24 09:48 WIND ENERGY SYSTEMS INSTALLER.JBOR Vomiting No 11/04/24 09:48 WIND ENERGY SYSTEMS INSTALLER.JBOR Anesthesia Postop Eval I: Fluid Summary Crystalloid volume administer 1,000 11/04/24 09:48 WIND ENERGY SYSTEMS INSTALLER.JBOR (ml) Colloids volume administered ( ml) Blood Product volume administered (ml) Total IV fluid infused 1,000 11/04/24 09:48 WIND ENERGY SYSTEMS INSTALLER.JBOR Anesthesia Postop Eval I: Summary Notes Anesthesia Complication No 11/04/24 09:48 WIND ENERGY SYSTEMS INSTALLER.JBOR Anesthesia Complication Comment: Post-operative progress note Anesthesia: Postop Eval II Evaluation Mental status: Awake Pain Level: 0 nausea: No Vomiting: No
--- NOTE | 2024-11-04 10:57 | OP.PCM_ITS ---
Problems Associated Problem List Diagnoses (1) Cystocele with rectocele: Operative Report (Standard) Operative Information Date of Procedure: 11/04/24 Pre-Operative Diagnosis: Cystocele, rectocele, stress urinary incontinence Post-Operative Diagnosis: Same Surgery/Procedure Performed: Anterior repair, posterior repair, mid urethral sling, cystoscopy with bilateral ureteral catheterization cassandra architect: Yes Training And Quality Manager: Ho Vuong Tasks completed by emergency veterinary assistant: Retracting Type of Anesthesia: General RN Documented Start/Stop Times: Operation Date: 11/04/24 07:30 Case Time Into Pre-Op 11/04/24 06:04 Out of Pre-Op 11/04/24 07:23 Anesthesia Start 11/04/24 07:27 Into Room 11/04/24 07:27 Procedure Start 11/04/24 07:48 Procedure End 11/04/24 09:33 Anesthesia End 11/04/24 09:40 Out of Room 11/04/24 09:40 Into Recovery 11/04/24 09:42 Out of Recovery 11/04/24 10:36 Procedure Start Time: 07:48 Procedure Stop Time: 09:33 Select all DRAINS/GRAFTS/IMPLANTS that apply: Implanted device Implanted device details: Altis mid urethral sling Estimated Blood Loss: 50cc Specimen collected: No Description of surgery: The patient is a 49-year-old female with significant anterior and posterior prolapse with stress urinary incontinence who presents for surgical inte rvention. Informed consent was obtained. She was taken to the operating room and placed on the operating room table. Anesthesia monitored the head, neck, airway, IV access and vital signs throughout the case. Once anesthesia was appropriately ministered, she was placed into dorsolithotomy and Trendelenburg position and was prepped and draped in usual sterile fashion. A Sánchez catheter was inserted and the bladder was drained. The anterior vaginal wall was isolated and injected submucosally with 1% lidocaine with epinephrine for hydrostatic dissection and hemostatic control. A midline incision was made vertically. Sharp and blunt dissection were performed bilaterally until the pubocervical fascia was identified. The dissection was performed from the area of the bladder neck all the way to the cuff line. Of note, the cuff line fell on the anterior vaginal wall and the posterior wall was well supported apically. There was no access to performing a sacrospinous ligament fixation anteriorly no need for one. The pubocervical fascia was brought together in a 2 layer closure using a combination of interrupted 3-0 PDS and 2-0 Vicryl. After the anterior wall was well supported, the mucosa was closed in running interlocking fashion with 2-0 Vicryl. A cystourethroscopy was performed after removing the Sánchez catheter. The scope was inserted through the urethra under direct vis ualization into the urinary bladder. Full evaluation of the bladder mucosa revealed no evidence of injury, laceration or foreign body. A 5 Mauritian whistle- tip catheter was used to cannulate each ureteral orifice and the catheter extended to 20 cm bilaterally without evidence of obstruction or injury. The cystoscope was then removed and the Sánchez catheter was reinserted to straight drain. Attention was then turned posteriorly where the defect was mostly distal. Submucosal injection was once again performed. A midline incision was then made. Sharp and blunt dissection was performed bilaterally. The perineal body was reconstructed with interrupted 3-0 PDS sutures and a second layer with 2-0 Vicryl. The distal posterior wall defect was brought together in a 2 layer closure with interrupted sutures. The mucosa was then closed in running interlocking fashion with 2-0 Vicryl. At the very end of the incision closure, a cystic structure just beneath the skin in the perineum ruptured and approximately 1 cc of purulent fluid drained. This was cultured and the area was profusely irrigated with sterile water. There was no evidence of infection or other abnormality at this time and no further cystic areas were identified. The closure was completed. The mid urethra was then isolated and injected submucosally. A vertical 2 cm incision was made. Sharp and blunt dissection was performed bilaterally with care being taken to avoid injury to the urethra or the vaginal mucosa. Using the trocars provided, the Altis mid urethral sling was placed into the transobturator complexes bilaterally. The sling lay flat against the urethra and was positioned using the tensioning suture. The suture was then cut and the incision was closed with running interlocking 2-0 Vicryl. The patient was then taken out of Trendelenburg positioning and the Sánchez catheter was removed. The cystoscope was once again reinserted finding no evidence of injury, laceration or foreign body. There was no obstruction with entering of the cystoscope through the urethra. The ureters were checked bilaterally once again with catheterization using a 5 Mauritian whistle-tip catheter. No abnormalities were identified in the catheter advanced to 20 cm bilaterally without evidence of injury or obstruction. The cystoscope and whistle-tip catheter were removed. The Sánchez catheter was reinserted and the ba lloon inflated with 10 cc of water. The vagina was then packed with Premarin cream and vaginal packing. She was awakened and taken to the recovery room in good condition. There were no complications during this procedure. Surgical Findings: Good apical support, Altis mid urethral sling utilized Complications Complications: No Admit VTE Documentation VTE Present on Admission: Yes VTE Mechan Device Prophylaxis: SCD's VTE Pharm Prophylaxis ordered?: Yes
--- NOTE | 2024-11-04 11:08 | DCINST_ITS ---
Discharge Instructions Diet Discharge Diet: No restrictions Activity Discharge Activity: May Shower May resume sexual activity in: 8 weeks Lifting Restrictions: 5 pounds Additional Activity Instructions:: No exercise, strenuous activity, dog walking, hot tubs, swimming, tub bathing Dressing / Incision Call your doctor if your incision/area has: Continuous Slow Oozing, Sudden Increased Bleeding, Increased Pain/ Swelling and Foul Smelling Discharge Call your doctor if you observe: Fever of 101 or Higher, Inability to urinate and Inability to have a bowel movement Follow Up Care Please Follow Up With: Yvonne Boudreaux MD When: The office will call to make arrangements for follow-up. Test Results: Test results from this visit will be discussed in further detail at your follow- up appointment, if applicable. Discharge Plan Admission Admit Date/Time: 11/04/24 09:56 Attending Provider: Yvonne Boudreaux Primary Care Provider: Amy Alberto Discharge Orders/Prescriptions Prescriptions: New hydrocodone-acetaminophen 5-325 mg tablet 1 tab PO Q8H PRN (Reason: Pain) 3 Days Qty: 10 0RF cephalexin 500 mg capsule 500 mg PO Q12 3 Days Qty: 6 0RF ondansetron 8 mg tablet,disintegrating 8 mg PO Q8H PRN (Reason: nausea and vomiting) Qty: 10 0RF Referrals / Follow Up: Amy Alberto MD [Primary Care Provider] - Disposition Disposition (needs filled in before D/C Order can be placed): Home, Self Care
[2024-11-04] MEDS: 0.9% Saline Lock 10 ML Syringe IV (15:17)
[2024-11-04] MEDS: Cefazolin 1 GM/50 ML BAG IV (15:17)
[2024-11-05 00:03] VITALS: BP 102/61; PULSE 62; RESP 18; TEMP 36.5; O2SAT 97
[2024-11-05] MEDS: Cefazolin 1 GM/50 ML BAG IV (00:05)
[2024-11-05 05:20] VITALS: BP 113/64; PULSE 81; RESP 16; TEMP 37.1; O2SAT 97
--- NOTE | 2024-11-05 07:49 | PCM.PN.GU ---
Subjective Subjective Had a wonderful night, no issues with anesthesia, pain, nausea or vomiting. Tolerating oral intake. Objective Data Objective Data Vital Signs: Vital Signs Temp Pulse Resp BP Pulse Ox O2 Del Method 98.8 F 81 16 113/64 97 Room Air 11/05/24 05:20 11/05/24 05:20 11/05/24 05:20 11/05/24 05:20 11/05/24 05:20 11/05/24 05:20 Oxygen Delivery Method Room Air Weight: 95 kg Body Mass Index (BMI) 30.0 Intake & Output: Intake and Output for Last 24 Hours 11/03/24 11/04/24 11/05/24 23:59 23:59 23:59 Intake Total 769.5 / 769.5 180.25 / 180.25 Output Total 6100 / 6100 600 / 600 Balance -5330.5 / -5330.5 -419.75 / -419.75 Lab / Micro Data Micro: Microbiology 11/04/24 Unknown Tissue - Other Gram Stain - Final Physical Exam Const alert, oriented x3 and no apparent distress Resp normal respiratory effort, normal air movement and no retractions Cardio regular rate GI soft to palpation, non-tender and non-distended Narrative: Sánchez catheter draining clear yellow urine was removed without incident Vaginal packing also removed without issue Extremity Extremity Narrative: SCDs in place Skin no rashes or lesions noted, no petechiae and no mottling Neuro oriented x3, CN's II-XII intact bilaterally and moves all extremities Assessment & Plan Assessment/Plan (1) Cystocele with rectocele: (2) AMARA (stress urinary incontinence, female): PLAN: Plan Trial of void today Continue supportive care Postoperative restrictions Home later today with follow-up in
[2024-11-05 07:55] VITALS: O2SAT 96
[2024-11-05 07:57] VITALS: BP 97/61; PULSE 69; RESP 18; TEMP 36.3; O2SAT 97
[2024-11-05] MEDS: Enoxaparin 40 MG/0.4 ML Syringe SC (08:03)
[2024-11-05 08:14] LABS: Absolute Lymphocyte Count 2.99 X10^3/uL (0.83-4.51); Basophil# 0.01 X10^3/uL; Basophil% 0.1 % (0-1); Eosinophil# 0.01 X10^3/uL; Eosinophils% 0.1 % (0-5); Hematocrit 36.1 % (37-47); Hemoglobin 12.3 g/dL (12.0-15.0); Lymphocyte # 2.99 X10^3/ul (0.83-4.51); Lymphocyte % 25.6 % (19-41); Mean Corp Hgb Conc 34.1 g/dL (32-36); Mean Corpuscular Hgb 31.9 pg (27.0-32.0); Mean Corpuscular Volume 93.8 fL (81-99); Mean Platelet Vol. 9.7 fl (6.2-12.0); Monocyte# 0.63 X10^3/uL; Monocyte% 5.4 % (0-10); NRBC Flagged by Analyzer 0 % (0-5); Neutrophil % 68.5 % (47-70); Platelet Count 248 K/mm3 (150-450); RBC Distribution Width CV 12.6 % (11.6-14.6); RBC Distribution Width SD 43.3 fl (35.1-43.9); Red Blood Count 3.85 M/mm3 (4.2-5.4); White Blood Count 11.7 K/mm3 (4.4-11.0)
[2024-11-05 09:10] LABS: Anion Gap 8 (5-15); BUN 11 mg/dL (4-19); Calcium,Total 8.4 mg/dL (7.6-11.0); Carbon Dioxide 21.7 mmol/L (21.0-32.0); Chloride 109 mmol/L (98-108); Creatinine, Serum 0.69 mg/dL (0.70-1.20); EST Glomerular Filtration Rate 108 (>60); Estimated Creatinine Clearance 125.86 ml/min (50-250); Glucose 85 mg/dL (70-99); Potassium 3.8 mmol/L (3.3-5.1); Sodium Level 139 mmol/L (133-145)
--- NOTE | 2024-11-05 13:36 | PHA.DC.MR.R ---
Pharmacy [facility] Med Reconciliation Pharmacy Service has performed discharge medication reconciliation for this patient. Patient unavailable when counseling attempted. Medications reviewed. The patient's discharge medication list was reviewed for discrepancies and discrepancies were resolved. Medications at Discharge Home Medications cephalexin 500 mg capsule 500 mg PO Q12 post-operative 3 days #6 CAPSULES 11/04/24 hydrocodone-acetaminophen 5-325mg 5mg-325mg 1 tab PO Q8H PRN Pain 3 days #10 TABLETS 11/04/24 ondansetron 8 mg disintegrating tablet 8 mg PO Q8H PRN nausea and vomiting #10 tabs 11/04/24
== END 2024-11-05 12:50 | disposition home or self-care (01) ==
LOC: MS3 10:05 → SDC 12:30 → MS3 12:30
PROVIDERS: Admitting Provider Urology; PCP Internal Medicine; Referring Provider Urology; Visit Provider Urology
PROC: (CPT 57260; principal; 2024-11-04 07:15)
DX: N39.3 Stress incontinence (female) (male) (principal); E11.9 Type 2 diabetes mellitus without complications; N81.6 Rectocele; N81.11 Cystocele, midline; E78.5 Hyperlipidemia, unspecified; F32.A Depression, unspecified; Z90.710 Acquired absence of both cervix and uterus
CPT/HCPCS: 57288; 57260; 36415; 80048; 82962; 85025; 87070; 87075; 87205; 94668; 96365; 96366; 96372; 99221; C1771; A4216; C1758; G0378; J2405

== ENCOUNTER → 2025-05-09 | Outpatient (CLI) | payer OTHER, SELFPAY ==
[2025-05-09 12:22] LABS: Hematocrit 38.9 % (37-47); Hemoglobin 13.6 g/dL (12.0-15.0); Immature Granulocytes Count 0.020 X10^3/uL (0.0-0.0); Mean Corp Hgb Conc 35.0 g/dL (32-36); Mean Corpuscular Volume 92.4 fL (81-99); Mean Platelet Vol. 10.6 fl (6.2-12.0); NRBC Flagged by Analyzer 0 % (0-5); Platelet Count 255 K/mm3 (150-450); RBC Distribution Width CV 12.3 % (11.6-14.6); RBC Distribution Width SD 42.2 fl (35.1-43.9); Red Blood Count 4.21 M/mm3 (4.2-5.4); White Blood Count 9.1 K/mm3 (4.4-11.0)
== END | disposition home or self-care (01) ==
PROVIDERS: PCP Internal Medicine; Visit Provider Obstetrics & Gynecology
DX: R53.83 Other fatigue (principal)
CPT/HCPCS: 36415; 84443; 85025